=== PATIENT | female | born 1985 | race Caucasian/White ===

== ENCOUNTER 2017-04-05 01:20 | Emergency (ER) | payer MEDICAID ==
--- NOTE | 2017-04-05 01:53 | EDPHY ---
H & P Stated Complaint: R flank pain and dysuria x32 hours Time Seen by Provider: 04/05/17 01:47 HPI/ROS: Chief Complaint: Back pain, urinary frequency HPI: 31-year-old woman who is been having some dysuria for the last 32 hr. To having urinary urgency and frequency. She did start some azo without any relief. She went to bed tonight and then woke with severe right flank pain which radiated to her lower abdomen. It was a 10/10. On the way to the hospital the pain did resolve. She is currently pain-free. No nausea or vomiting. Currently no abdominal pain. Is continuing to feel some urinary urgency. Last menstrual period was 2 weeks ago. She has not been having any vaginal bleeding or discharge. ROS: 10 point Review of Systems is negative except as noted in the HPI. PMH: None Social History: No smoking, occasional alcohol, no recreational drug use Family History: Does have a family history of kidney stones Physical Exam: Gen: Awake, Alert, No Distress HEENT: Nose: no rhinorrhea Eyes: PERRLA, EOMI Mouth: Moist mucosa Neck: Supple, no JVD Chest: nontender, lungs clear to auscultation Heart: S1, S2 normal, no murmur Abd: Soft, non-tender, no guarding Back: no CVA tenderness, no midline tenderness Ext: no edema, non-tender Skin: no rash Neuro: CN II-XII intact, Sensation grossly intact, Strength 5/5 in bilateral upper and lower extremities - Personal History Current Tetanus/Diphtheria Vaccine: Unsure - Medical/Surgical History Hx Asthma: No Hx Chronic Respiratory Disease: No Hx Diabetes: No Hx Cardiac Disease: No Hx Renal Disease: No Hx Cirrhosis: No Hx Alcoholism: No Hx HIV/AIDS: No Hx Splenectomy or Spleen Trauma: No Other PMH: no PMH or PSH - Social History Smoking Status: Never smoked Constitutional: Initial Vital Signs Temperature (C) 36.3 C 04/05/17 01:23 Heart Rate 85 04/05/17 01:23 Respiratory Rate 15 04/05/17 01:23 Blood Pressure 142/87 H 04/05/17 01:23 O2 Sat (%) 95 04/05/17 01:23 O2 Delivery Mode Room Air Allergies/Adverse Reactions: No Known Allergies Allergy (Unverified 04/05/17 01:23) Home Medications: Medication Instructions Recorded NK [No Known Home Meds] 04/05/17 Medical Decision Making ED Course/Re-evaluation: Urinalysis shows hematuria but no signs of pyuria. Patient has had no pain since she has been here without any treatment. I think is likely that she has passed a kidney stone. We had a long conversation. She would prefer to not have a CT scan at this time which I think is appropriate. Will discharge her with follow up with her primary care physician. If he continues to have any pain she will take ibuprofen. She will return for worsening. - Data Points Laboratory Results: 04/05/17 04/05/17 01:37 01:37 Urine Color YELLOW Urine Appearance HAZY Urine pH 6.0 (5.0-7.5) Ur Specific [place] 1.020 (1.002-1.030) Urine Protein NEGATIVE (NEGATIVE) Urine Ketones NEGATIVE (NEGATIVE) Urine Blood 1+ H (NEGATIVE) Urine Nitrate NEGATIVE (NEGATIVE) Urine Bilirubin NEGATIVE (NEGATIVE) Urine Urobilinogen NEGATIVE EU EU (0.2-1.0) Ur Leukocyte Esterase NEGATIVE (NEGATIVE) Urine RBC 15-25 /hpf H /hpf (0-3) Urine WBC 5-10 /hpf H /hpf (0-3) Ur Epithelial Cells TRACE /lpf /lpf (NONE-1+) Urine Mucus TRACE /lpf /lpf (NONE-1+) Urine Glucose NEGATIVE (NEGATIVE) Urine Test NEGATIVE Departure - Departure Disposition: Home, Routine, Self-Care Clinical Impression: Renal colic on right side Condition: Good Instructions: Renal Colic (ED) Additional Instructions: If her pain returns she may take ibuprofen 600 mg 3 times a day. DP continue have pain, nausea, vomiting, or fever return to the emergency department. Follow up with primary care physician in 2-3 days for further evaluation. Referrals: KARRIE ANGUIANO [Other] - As per Instructions
[2017-04-05 02:29] LABS: COLOR YELLOW; LEUKOCYTE ESTERASE,URINE NEGATIVE (NEGATIVE); NITRITE,URINE NEGATIVE (NEGATIVE)
[2017-04-05 02:40] LABS: MUCUS TRACE /lpf (NONE-1+); RBC,URINE 15-25 /hpf (0-3)
[2017-04-05 03:03] VITALS: BP 132/73; PULSE 77; RESP 16; TEMP 98.1; O2SAT 97
== END 2017-04-05 03:02 | disposition home or self-care (01) ==
LOC: EDSEX
DX: N23 Unspecified renal colic (principal)